=== PATIENT | male | born 1955 | race African-American/Black ===

== ENCOUNTER 2017-01-08 14:04 | Inpatient (IN) | payer OTHER ==
[~2017-01-08] VITALS: Ht 190.5 cm; Wt 171.0 kg
[2017-01-08 14:09] VITALS: BP 141/89
[2017-01-08] MEDS ORDERED: SODIUM CHLORIDE FLUSH 10 ML SYR IVF ONE (15:55)
[2017-01-08] MEDS ORDERED: ASPIRIN 81 MG TAB.CHEW PO ONE (16:50)
[2017-01-08] MEDS ORDERED: FUROSEMIDE 40 MG/4 ML VIAL IVP ONE (16:50)
[2017-01-08] MEDS ORDERED: NITROGLYCERIN 2% 1 GM PKT TP ONE (16:50)
--- NOTE | 2017-01-08 17:00 | NUR ---
PT CAME TO ER DUE TO SOB x ONE MONTH. DENIES CP/DIZZINESS/BLURRY OF VISSION;W/NON PITTING EDEMA ON BOTH FEET.SKIN WARM TO TOUCH;W/ 02 AT 2 LPM;HX OF HTN ;PT IS AAOX4;HOB ELEVATED;NEEDS ATTENDED;SAFETY PREACUTION INSTITUTED; MADE AWARE OF PT'S CONDITION;
[2017-01-08] MEDS ORDERED: AMIODARONE 200 MG TAB PO ONE (17:20)
--- NOTE | 2017-01-08 17:20 | NUR ---
DR JOYA AT BEDSIDE
--- NOTE | 2017-01-08 17:35 | NUR ---
PY LYING ON BED COMFORTABLY;NO ACUTE DISTRESS NOTED AT THIS TIME;WILL CONTINUE TO MONITOR PT
[2017-01-08] MEDS ORDERED: MOTRIN PO (18:08)
[2017-01-08] MEDS ORDERED: LASIX20 MG PO (18:08)
[2017-01-08] MEDS ORDERED: K-DUR10 MEQ PO (18:09)
--- NOTE | 2017-01-08 18:10 | NUR ---
RECEIVED REPORT FROM ER NURSE MICHELE. RECEIVED PT FROM ER, AWAKE, ALERT, ORIENTED X4. NO SHORTNESS OF BREATH NOTED. NO COMPLAINTS OF PAIN AT THIS TIME. VITAL SIGNS STABLE. BP 146/84, LA 69, RR 22, O2 SAT 98%, T 96.7. POSITIVE BOWEL SOUNDS ON ALL FOUR QUADRANTS. BOTH BILATERAL LEG SWELLING NOTED, NON PITTING, SKIN INTACT. PT AMBULATORY. AT BEDSIDE. SETTLED IN BED. KEPT COMFORTABLE. SAFETY PRECAUTION IN PLACE. CALL LIGHT WITHIN REACH. WILL ENDORSE TO NEXT SHIFT NURSE TO CONTINUE WITH THE ADMISSION PROCESS.
--- NOTE | 2017-01-08 18:14 | NUR ---
Patient will be admitted to care of [facility]. Admited to MS . Will go to room 108 B. Belongings list completed. Report to RADHA ZUNIGA.
--- NOTE | 2017-01-08 18:32 | NUR ---
[facility] NARES SWABS COLLECTED AND SENT TO LAB. DR. NOGUERA (RESIDENT) NOTIFIED REGARDING PT'S ADMISSION UNDER DR. MEDINA.
--- NOTE | 2017-01-08 19:30 | NUR ---
RECEIVED REPORT FROM DAY RN AT BEDSIDE, PATIENT IS IN STABLE CONDITION AAOX4 ON O2 2L NC, NO SOB OR DISTRESS NOTED. PATIENT DENIES PAIN AT THIS TIME, IV TO LEFT HAND PATENT AND INTACT. SKIN IS INTACT WITH BILATERAL LOWER EXTREMITY NON PITTING EDEMA. VITAL SIGNS ARE STABLE, AT BEDSIDE, DISCUSSED PLAN OF CARE WITH PATIENT, PATIENT VERBALIZED UNDERSTANDING, CALL LIGHT WITHIN REACH. SAFETY MEASURES CHECKED, WILL CONTINUE TO MONITOR.
[2017-01-08 20:00] VITALS: BP 133/77
--- NOTE | 2017-01-08 20:30 | NUR ---
PATIENT C/O HEADACHE, PAGED PICKING MACHINE OPERATOR FOR DR MEDINA, DR CODY STATED THEY WOULD PUT IN SOME ORDERS, WILL F/U.
[2017-01-08] MEDS ORDERED: ACETAMINOPHEN 325 MG TAB PO PRN (21:35)
--- NOTE | 2017-01-08 22:32 | NUR ---
ADMINISTERED TYLENOL PER MD ORDER FOR PATIENT C/O SLIGHT HEADACHE. PATIENT TOLERATED WELL, CALL LIGHT WITHIN REACH. WILL CONTINUE TO MONITOR.
--- NOTE | 2017-01-08 22:50 | NUR ---
CALLED DR CODY TO FOLLOW UP WITH PATIENT ORDERS, PATIENT DID NOT HAVE ANY REPEAT LABS AND TROPONIN IS ELEVATED AND NOTIFIED MD THAT PATIENT IS HAVING VERY FREQUENT VENTRICULAR BEATS ABOUT 20-30/MIN. GAVE NO ORDERS AND STATED THEY WILL PUT SOMETHING IN. WILL F/U.
[2017-01-08] MEDS ORDERED: HEPARIN PER PHARMACY MC PRN (23:10)
--- NOTE | 2017-01-08 23:21 | NUR ---
RECEIVED CALL FROM DR AMANDA, INQUIRING ABOUT PATIENT'S TROPONIN LEVEL AND IF THERE WERE ANY CONTRAINDICATIONS TO STARTING A HEPARIN DRIP, SPOKE WITH PATIENT AND VERIFIED NO CONTRAINDICATIONS, STATED HE WILL PUT IN ORDERS FOR REPEAT TROPONIN LAB DRAW, HEPARIN DRIP AND EKG, WILL F/U WITH ORDERS.
[2017-01-09] VITALS: BP 125/87
--- NOTE | 2017-01-09 00:27 | NUR ---
VITAL SIGNS STABLE, PATIENT AWAKE RESTING IN BED, NO SOB OR SIGN OF DISTRESS, PATIENT OFF O2, SATS AT 96%, PATIENT STATES HEADACHE WENT AWAY, CALL LIGHT WITHIN REACH. WILL CONTINUE TO MONITOR.
--- NOTE | 2017-01-09 00:47 | NUR ---
CRITICAL VALUE TROPONIN 0.084, TRENDING DOWN AWAITING VERIFICATION FROM PHARMACY FOR HEPARIN DRIP.
--- NOTE | 2017-01-09 01:03 | NUR ---
CALLED [facility] SPOKE WITH ADALI TO INQUIRE ABOUT VERIFICATION OF HEPARIN DRIP, STATED WILL BE VERIFIED WITHIN 5-10 MIN.
--- NOTE | 2017-01-09 01:50 | NUR ---
STARTED HEPARIN DRIP PER PROTOCOL. PATIENT RESTING IN BED, NO SIGN OF DISTRESS, CALL LIGHT WITHIN REACH. WILL CONTINUE TO MONITOR.
[2017-01-09] MEDS: hePARIN / DEXT 5% PREMIX 250 ML IV SCH ×3 (01:57→15:08)
[2017-01-09 04:00] VITALS: BP 136/76
--- NOTE | 2017-01-09 04:05 | NUR ---
PATIENT RESTING IN BED, VITAL SIGNS STABLE, NO SOB OR SIGN OF DISTRESS, CALL LIGHT WITHIN REACH. WILL CONTINUE TO MONITOR.
--- NOTE | 2017-01-09 06:21 | NUR ---
PATIENT SLEEPING, NO SOB OR SIGN OF DISTRESS, CALL LIGHT WITHIN REACH. WILL CONTINUE TO MONITOR.
--- NOTE | 2017-01-09 07:19 | NUR ---
ENDORSED PATIENT TO DAY SHIFT RN AT BEDSIDE, PATIENT IS IN STABLE CONDITION.
--- NOTE | 2017-01-09 07:20 | NUR ---
RECEIVED REPORT FROM THE PHLEBOTOMY MANAGER NURSE AT BEDSIDE FOR CONTINUITY OF CARE. PT IS SITTING UP IN BED. HE IS AWAKE AND ALERT. I INTRODUCED MYSELF AND UPDATED THE BOARD. PT'S SKIN IS INTACT. NOTED THE BLE EDEMA, NON PITTING. PT HAS A HEP DRIP RUNNING AT 22ML/HR. BLOOD WAS DRAWN THIS MORNING. WILL KEEP EYE OUT FOR NEXT PTT TO ADJUST THE HEPARIN DOSAGE. ALL NEEDS ARE MET. ALL SAFETY MEASURES IN PLACE. WILL CONTINUE TO MONITOR PT.
[2017-01-09 08:00] VITALS: BP 137/84
--- NOTE | 2017-01-09 08:00 | NUR ---
V/S WITHIN NORMAL RANGE. DENIES PAIN. BREAKFAST TRAY IS HERE. WILL LEAVE HIM TO EAT. WILL CONTINUE TO MONITOR PT.
--- NOTE | 2017-01-09 08:24 | NUR ---
LAB CALLED FOR CRITICAL LABS: TROPONIN 0.087 AND PTT >150. PER PROTOCOL WILL HOLD HEPARIN FOR 1 HR AND WILL REDUCE 3 ML THEREAFTER.
[2017-01-09] MEDS: PANTOPRAZOLE 40 MG INJ VIAL IVP SCH (08:48)
--- NOTE | 2017-01-09 08:50 | NUR ---
ADMINISTERED MORNING MED. PT IS ASKING ABOUT HIS FLONASE FOR HIS ALLERGIES. I WILL ASK THE DR. ABOUT IT. PT TOLERATED HIS MORNING MEDS WELL. HE JUST FELL ASLEEP. NO SIGNS OF DISTRESS. WILL CONTINUE TO MONITOR PT.
--- NOTE | 2017-01-09 08:55 | NUR ---
PATIENT HAS BEEN SCREENED AND CATEGORIZED HIGH NUTRITION RISK. PATIENT WILL BE SEEN WITHIN 1-2 DAYS OF ADMISSION. 01/10/17-01/11/[address]
--- NOTE | 2017-01-09 09:00 | NUR ---
SPOKE TO DR. NOGUERA REGARDING PT TROPONIN AND PTT LEVEL.
--- NOTE | 2017-01-09 09:50 | NUR ---
RESTARTED THE HEPARIN DRIP, LOWERED THE RATE TO 19ML/HR. IS HERE. ANSWERED ALL QUESTIONS. SHE WANTED SOME CLEAN TOWELS AND A NEW GOWN. SUPPLIED THEM TO HER. PT IS STABLE. WILL CONTINUE TO MONITOR PT.
--- NOTE | 2017-01-09 10:45 | NUR ---
ECHO DONE NOTIFIED ABOUT low EF AT 11.35 A,M
[2017-01-09] MEDS ORDERED: FUROSEMIDE 20 MG/2 ML VIAL IVP SCH (11:30)
--- NOTE | 2017-01-09 11:55 | NUR ---
PT SIGNED THE CONSENT FORM FOR MEDICAL RECORD RELEASE FROM [facility]. CALLED [facility], THE MR OFFICE IS NOT OPEN UNTIL WEDNESDAY. WILL FAX OVER REQUEST.
[2017-01-09] MEDS: FLUTICASONE NASAL 50 MCG/ACTUATION 16 GM BTL NS SCH (11:56)
[2017-01-09 12:00] VITALS: BP 142/95
--- NOTE | 2017-01-09 13:22 | NUR ---
01/09/17 RD INITIAL ASSESSMENT COMPLETED PLEASE REFER TO NUTRITION ASSESSMENT UNDER CARE ACTIVITY FOR ESTIMATED NUTRITIONAL NEEDS. RD RECOMMENDATIONS: 1. CONTINUE CARDIAC DIET MEDICALLY APPROPRIATE. --NOTE PT REPORTS GOOD APPETITE CONSUMING 90% OF BREAKFAST THIS MORNING. PT CURRENT PO INTAKE MEETS 77% OF PT ESTIMATED KCAL NEEDS AND 100% OF PT ESTIMATED PROTEIN NEEDS. --ADEQUATE 2. RD PROVIDED HEARY HEALTHY NUTRITION EDUCATION TO PT AND PROVIDED NUTRITION EDUCATION HANDOUTS. --NOTE PT WAS RECEPTIVE AND ASKED FOR FURTHER NUTRITION EDUCATION. 3. RD WILL F/U 7 DAYS; LOW RISK. MAG MARIE, RD
--- NOTE | 2017-01-09 13:30 | NUR ---
PT SITTING ON THE SIDE OF BED. FINISHED EATING LUNCH. NO COMPLAINTS. MET ALL NEEDS. CALL LIGHT WITHIN REACH. WILL CONTINUE TO MONITOR PT.
--- NOTE | 2017-01-09 15:32 | NUR ---
LAB CALLED. CRITICAL VALUE: PTT 132.5. PER PROTOCOL: HOLD FOR 1 HOUR AND RESTART AT 15ML/HR.
[2017-01-09 16:00] VITALS: BP 124/88
--- NOTE | 2017-01-09 16:15 | NUR ---
DR. NOGUERA D/C'D HEPARIN DRIP. WILL RESUME WITH HEPARIN IVP.
--- NOTE | 2017-01-09 18:12 | NUR ---
PT IS SITTING AT BEDSIDE. FINISHED 100% OF HIS DINNER. NO COMPLAINTS AT THIS TIME. WILL CONTINUE TO MONITOR PT.
--- NOTE | 2017-01-09 19:15 | NUR ---
ENDORSED PT TO THE LEGAL INVESTIGATOR NURSE AT BEDSIDE FOR CONTINUITY OF CARE. PT IS IN STABLE CONDITION. HE PUT ON THE NC D/T SOB. PT STATED HE ATE TOO MUCH.
--- NOTE | 2017-01-09 19:16 | NUR ---
RECEIVED REPORT FROM DAY RN FOR CONTINUITY OF CARE. PATIENT IS A&OX4, DISCUSSED PLAN OF CARE WITH PATIENT, VERBALIZED UNDERSTANDING. SHIFT ASSESSMENT DONE, VS TAKEN, STABLE AT THIS TIME. NO S/S OF RESPIRATORY DISTRESS NOTED ON ROOM AIR, EDUCATED PT ABOUT USE OF NASAL CANNULA NEEDED, VERBALIZED UNDERSTANDING. PATIENT DENIES PAIN AT THIS TIME. SKIN INTACT, BLE EDEMA NOTED. IV TO RT LT HAND 22 GAUGE PATENT AND FLUSHED. SAFETY/FALL PRECAUTIONS ENFORCED. CALL LIGHT PLACED WITHIN REACH. WILL CONTINUE TO MONITOR.
--- NOTE | 2017-01-09 19:53 | NUR ---
PT'S WANTED TO TALK TO MD AND TRANSFER PT TO OTHER HOSPITAL [facility].CALLED. IS [employer]ING FOR .SHE TALKED WITH PT.'S AND TOLD HER THAT SHE WILL CALL ESTATE PLANNING ATTORNEY TO COME AND SEE PT.BUT IF SHE WANTS TO MOVE PT [facility] CAN SIGN AMA AND IF PT IS AWAKE AND ALERT SO PT HAS TO SIGN AMA PAPER NOT HIS .
[2017-01-09 20:00] VITALS: BP 115/80
--- NOTE | 2017-01-09 21:01 | NUR ---
PATIENTS ON THE PHONE WITH DR. CODY AGAIN REGARDING TRANSFER. PER PATIENTS PT TO STAY UNTIL TOMORROW WHEN DOCTORS WILL SIGN OFF RELEASE.
[2017-01-09] MEDS: FUROSEMIDE 20 MG/2 ML VIAL IVP SCH (21:10)
--- NOTE | 2017-01-09 21:10 | NUR ---
DUE MEDICATIONS ADMINISTERED, TOLERATED WELL. VS STABLE.
--- NOTE | 2017-01-09 22:53 | NUR ---
INFORMED BY BALLET SOLOIST PATIENT IS HAVING FREQUENT PVCS AND VTACH, B/P TAKEN 137/56 AND HR 115. PATIENT DENIES CHEST PAIN. PAGED DR. CODY AWAITING REPLY.
--- NOTE | 2017-01-09 23:29 | NUR ---
PAGED THE INTERVENTIONAL RADIOLOGY TECHNOLOGIST DR. CODY FOR DR. MEDINA AGAIN, AWAITING CALL BACK.
--- NOTE | 2017-01-09 23:35 | NUR ---
SPOKE WITH DR. CODY REGARDING PT FREQ PVC'S AND RUNS OF VTACH ON TELE MONITOR, ORDERED BETA MONY, WILL ADMINISTER.
--- NOTE | 2017-01-09 23:55 | NUR ---
DUE MEDICATION ADMINISTERED PER MD ORDER. VS TAKEN, STABLE.
[2017-01-10] VITALS: BP 133/77
[2017-01-10] MEDS ORDERED: CARVEDILOL 3.125 MG TAB PO SCH
--- NOTE | 2017-01-10 01:56 | NUR ---
PT IS SLEEPING. NO S/S OF DISTRESS OR DISCOMFORT NOTED. URINAL EMPTIED, 450ML CLEAR YELLOW URINE NOTED.
[2017-01-10 04:00] VITALS: BP 129/57
--- NOTE | 2017-01-10 04:01 | NUR ---
VS TAKEN, STABLE. PT DENIES CHEST PAIN OR DISCOMFORT. EMPTIED URINAL 450 ML CLEAR YELLOW URINE. CALL LIGHT WITHIN REACH.
--- NOTE | 2017-01-10 06:18 | NUR ---
PT UP PERFORMING AM CARE. NO S/S OF DISTRESS NOTED. WILL CONTINUE TO MONITOR.
--- NOTE | 2017-01-10 07:08 | NUR ---
ENDORSED PATIENT TO ONELIA ZUNIGA FOR CONTINUITY OF CARE, PT IS IN STABLE CONDITION.
--- NOTE | 2017-01-10 07:09 | NUR ---
RECEIVED REPORT FROM THE MESSAGE CLERK NURSE AT BEDSIDE FOR CONTINUITY OF CARE. PT IS AWAKE AND ALERT. PLAN FOR TODAY: TRANSFER TO [facility] PER MESSAGE CLERK NURSE. DR. SOUZA, PCP WILL BE COMING TO SPEAK TO DR. NOGUERA AND THEY WILL MAKE ARRANGEMENTS. IV STILL IN L HAND 22G SL. NO DISTRESS. NO COMPLAINTS. WILL CONTINUE TO MONITOR PT.
--- NOTE | 2017-01-10 07:50 | NUR ---
V/S WITHIN NORMAL RANGE. DENIES PAIN. PT IS SITTING IN CHAIR EATING BREAKFAST. ALL NEEDS MET. CALL LIGHT WITHIN REACH. WILL CONTINUE TO MONITOR PT.
[2017-01-10 08:00] VITALS: BP 117/82
[2017-01-10] MEDS: FLUTICASONE NASAL 50 MCG/ACTUATION 16 GM BTL NS SCH (08:37)
[2017-01-10] MEDS: CARVEDILOL 3.125 MG TAB PO SCH ×2 (08:38→20:54)
[2017-01-10] MEDS: FUROSEMIDE 20 MG/2 ML VIAL IVP SCH (08:39)
[2017-01-10] MEDS: PANTOPRAZOLE 40 MG INJ VIAL IVP SCH (08:39)
--- NOTE | 2017-01-10 08:40 | NUR ---
ADMINISTERED MORNING MEDS. PT TOLERATED WELL. IS HERE AT BEDSIDE. IS REQUESTING HER TO BE TRANSFERRED TO [facility]. SHE HAS SPOKE TO DR. SOUZA AND APPARENTLY MADE ARRANGEMENTS. DR. SOUZA IS SUPPOSED TO BE HERE THIS MORNING. ONCE I GET ORDERS FOR TRANSFER, I WILL WORK ON THE PAPER WORK.
--- NOTE | 2017-01-10 10:00 | NUR ---
DR. NOGUERA AND DR. CODY CAME TO SEE PT AND SPOKE TO PT AND FOR AN EXTENSIVE PERIOD OF TIME.
--- NOTE | 2017-01-10 11:00 | NUR ---
DR. NEUMANN IS HERE. ASSESSING AND TALKING TO THE PT AND THE .
[2017-01-10] MEDS ORDERED: FUROSEMIDE 100 MG/10 ML VIAL IV ONE (11:20)
[2017-01-10] MEDS ORDERED: FUROSEMIDE 100 MG/10 ML VIAL IVP SCH (11:33)
[2017-01-10 12:00] VITALS: BP 122/93
[2017-01-10] MEDS ORDERED: SPIRONOLACTONE 25 MG TAB PO SCH (12:40)
--- NOTE | 2017-01-10 13:00 | NUR ---
PT RESTING IN BED. NO COMPLAINTS. WILL CONTINUE TO MONITOR PT.
[2017-01-10] MEDS: hydrALAZINE 10 MG TAB PO SCH ×2 (13:03→16:53)
--- NOTE | 2017-01-10 15:00 | NUR ---
PT RESTING COMFORTABLY. NO COMPLAINTS. WILL CONTINUE TO MONITOR PT.
[2017-01-10] MEDS: ISOSORBIDE DINITRATE 10 MG TAB PO SCH ×2 (15:17→20:54)
[2017-01-10 16:00] VITALS: BP 110/62
--- NOTE | 2017-01-10 16:30 | NUR ---
PT SITTING IN CHAIR WITH AT BEDSIDE. GAVE ME A URINE SAMPLE FOR UA AND DS. WILL SEND TO LAB. WILL CONTINUE TO MONITOR PT.
--- NOTE | 2017-01-10 18:35 | NUR ---
PT'S JUST LEFT. PT IS STABLE, IN BED WITH HIS SCD'S ON. PT IS RESTING COMFORTABLY. HE WOULD LIKE A CUP OF ICE. WILL GET IT FOR HIM. WILL CONTINUE TO MONITOR PT.
--- NOTE | 2017-01-10 19:05 | NUR ---
ENDORSED PT TO THE SATELLITE INSTALLATION TECHNICIAN NURSE AT BEDSIDE FOR CONTINUITY OF CARE. PT IS IN STABLE CONDITION.
--- NOTE | 2017-01-10 19:12 | NUR ---
RECEIVED REPORT FROM ONELIA ZUNIGA FOR CONTINUITY OF CARE. PATIENT IS A&OX4, DISCUSSED PLAN OF CARE WITH PATIENT, VERBALIZED UNDERSTANDING. SHIFT ASSESSMENT DONE, VS TAKEN, STABLE AT THIS TIME, B/P 107/74 HR 82. NO S/S OF RESPIRATORY DISTRESS NOTED ON ROOM AIR, PT DENIES SOB. PATIENT STATES NO PAIN AT THIS TIME. SKIN INTACT, BLE EDEMA NOTED, NO PITTING. IV TO LT HAND 22 GAUGE PATENT AND FLUSHED. SAFETY/FALL PRECAUTIONS ENFORCED. SCDS IN PLACE. CALL LIGHT PLACED WITHIN REACH. WILL CONTINUE TO MONITOR.
[2017-01-10 20:00] VITALS: BP 107/74
[2017-01-10] MEDS: FUROSEMIDE 100 MG/10 ML VIAL IVP SCH (20:54)
--- NOTE | 2017-01-10 20:54 | NUR ---
DUE MEDICATIONS ADMINISTERED, TOLERATED WELL. B/P 122/74 HR 89 SR ON TELE MONITOR WITH PVC'S. EMPTIED URINAL 200 ML CLEAR YELLOW URINE. REINFORCED FLUID RESTRICTION TO PATIENT. NO S/S OF DISTRESS OR DISCOMFORT NOTED. WILL CONTINUE TO MONITOR.
[2017-01-10] MEDS ORDERED: FUROSEMIDE 100 MG/10 ML VIAL IV SCH (21:00)
--- NOTE | 2017-01-10 22:14 | NUR ---
VS TAKEN, B/P 110/70 HR 78. PATIENT AMBULATED IN HALLWAY X1. FREQUENT PVCS ON TELE MONITOR AND HR UP TO 115, WHEN RETURNED TO BED PT B/P 120/72 HR 92. NO S/S OF DISTRESS NOTED WHILE AMBULATING.
[2017-01-11] VITALS: BP 92/53
--- NOTE | 2017-01-11 00:32 | NUR ---
VS TAKEN, STABLE. PT IS SLEEPING, NO S/S OF DISTRESS OR DISCOMFORT NOTED. WILL CONTINUE TO MONITOR.
--- NOTE | 2017-01-11 02:04 | NUR ---
EMPTIED URINAL 900 ML CLEAR YELLOW URINE NOTED. PT IS SLEEPING. NO S/S OF DISTRESS OR DISCOMFORT NOTED. CALL LIGHT WITHIN REACH.
[2017-01-11 04:00] VITALS: BP 115/78
--- NOTE | 2017-01-11 04:06 | NUR ---
VS TAKEN, STABLE. PT SITTING AT EDGE OF BED. NO S/S OF DISTRESS OR DISCOMFORT NOTED. PT STATES HE SLEPT GOOD AND WOULD LIKE TO SLEEP MORE. CALL LIGHT WITHIN REACH.
--- NOTE | 2017-01-11 06:00 | NUR ---
PT IS SITTING IN CHAIR AT BEDSIDE, TALKING ON THE PHONE. NO S/S OF DISTRESS OR DISCOMFORT NOTED.
--- NOTE | 2017-01-11 07:26 | NUR ---
ENDORSED PATIENT TO DAY RN FOR CONTINUITY OF CARE, PATIENT IS IN STABLE CONDITION.
--- NOTE | 2017-01-11 07:45 | NUR ---
RECEIVED PT AAOX4, SITTING IN CHAIR AT BEDSIDE AND VOICED NO C/O PAIN, SOB AND WAS IN NO DISTRESS. SHIFT ASSESSMENT DONE AND CHARTED. PLAN OF CARE MEDS, TREATMENTS AND SAFETY DISCUSSED WITH PT AND PT VERBALIZED UNDERSTANDING. WILL CONTINUE TO MONITOR PT.
[2017-01-11 08:00] VITALS: BP 110/74
[2017-01-11] MEDS ORDERED: hydrALAZINE 25 MG TAB PO SCH (09:00)
[2017-01-11] MEDS ORDERED: SPIRONOLACTONE 25 MG TAB PO SCH (09:00)
[2017-01-11] MEDS ORDERED: ISOSORBIDE DINITRATE 20 MG TAB PO SCH (09:00)
--- NOTE | 2017-01-11 09:00 | NUR ---
PT WAS SEEN BY DR. NOGUERA. NO NEW ORDERS MADE AT THIS TIME. PT STATED THAT MD TOLD HIM THAT HE WILL BE DISCHARGED TOADY.
[2017-01-11] MEDS: FUROSEMIDE 100 MG/10 ML VIAL IVP SCH (09:20)
[2017-01-11] MEDS: CARVEDILOL 3.125 MG TAB PO SCH (09:24)
[2017-01-11] MEDS: PANTOPRAZOLE 40 MG INJ VIAL IVP SCH (09:24)
[2017-01-11] MEDS: FLUTICASONE NASAL 50 MCG/ACTUATION 16 GM BTL NS SCH (09:26)
[2017-01-11] MEDS ORDERED: LASIX40 M1 PO (11:25)
[2017-01-11] MEDS ORDERED: HYDRALAZINE HCL25 M2 PO (11:25)
[2017-01-11] MEDS ORDERED: CARVEDILOL3.125 MG PO (11:25)
[2017-01-11] MEDS ORDERED: TOPCARE ASPIRIN81 M1 PO (11:25)
[2017-01-11] MEDS ORDERED: ATORVASTATIN CA20 MG PO (11:25)
[2017-01-11] MEDS ORDERED: SPIRONOLACTONE25 M1 PO (11:26)
[2017-01-11 12:00] VITALS: BP 114/84
--- NOTE | 2017-01-11 13:00 | NUR ---
DR. NOGUERA WAS IN TO SEE PT AND MD LEFT PRESCRIPTIONS AND DISCHARGE ORDER.
[2017-01-11 13:21] VITALS: BP 114/84
--- NOTE | 2017-01-11 13:53 | NUR ---
FAXED INITIAL REVIEW TO [facility] [phone] PHONE [facility] [phone] REFERENCE NUMBER [id number]
--- NOTE | 2017-01-11 14:40 | NUR ---
PRESCRIPTIONS AND DISCHARGE INSTRUCTIONS GIVEN TO PT AND PT VERBALIZED UNDERSTANDING. SALINE LOCK REMOVED REMOVED WITH OLD CATH TIP INTACT AND PRESSURE DRESSINGS APPLIED TO SITE. TELE BOX REMOVED AND GIVEN TO COMPRESSOR ENGINEER. PT DISCHARGED TO HOME AMBULATORY ESCORTED BY HEMATOLOGIST.. PT LEFT VIA PRIVATE VEHICLE WITH HIS IN A STABLE CONDITION.
--- NOTE | 2017-01-12 07:44 | NUR ---
RECEIVED A CALL FROM GENE FROM [facility] THAT SHE WAS THE STUDENT SERVICES REPRESENTATIVE FOR THIS PATIENT. I FAXED REVIEW TO HER AT [phone] PHONE [phone].
== END 2017-01-11 14:45 | disposition home or self-care (01) | DRG 291 ==
LOC: MED 14:04 → MTU 16:57
PROVIDERS: ADMIT Family Medicine; ATTEND Family Medicine
DX: I11.0 Hypertensive heart disease with heart failure (principal); N17.0 Acute kidney failure with tubular necrosis; E43 Unspecified severe protein-calorie malnutrition; Z68.42 Body mass index [BMI] 45.0-49.9, adult; E66.01 Morbid (severe) obesity due to excess calories; I42.0 Dilated cardiomyopathy; T78.3XXA Angioneurotic edema, initial encounter; I50.43 Acute on chronic combined systolic (congestive) and diastolic (congestive) heart failure; J30.9 Allergic rhinitis, unspecified; T46.4X5A Adverse effect of angiotensin-converting-enzyme inhibitors, initial encounter; Z88.8 Allergy status to other drugs, medicaments and biological substances; Z93.0 Tracheostomy status; Z79.899 Other long term (current) drug therapy; Z81.8 Family history of other mental and behavioral disorders